=== PATIENT | male | born 1970 | race Caucasian/White ===

== ENCOUNTER 2024-04-14 11:03 | Day surgery (SDC) | payer BC, MEDICARE ==
[2024-04-14 11:42] VITALS: TEMP 97.3
[2024-04-14] MEDS: Lactated Ringers 1,000 ML IV SCH (11:45)
[2024-04-14] MEDS ORDERED: Lactated Ringers 1,000 ML IV ONE (11:46)
[2024-04-14] MEDS ORDERED: Versed 2 MG/2 ML Injection ONE (13:29)
[2024-04-14] MEDS ORDERED: DIPRIVAN 200 MG/20 ML IV ONE ×3 (13:29→13:52)
[2024-04-14 14:31] VITALS: RESP 16
[2024-04-14 14:44] VITALS: BP 122/79; PULSE 67; O2SAT 99
--- NOTE | 2024-04-15 08:46 | OP ---
SURGERY DATE/TIME: 04/14/2024 1329 PREOPERATIVE DIAGNOSES: 1) History of Reyes's esophagus. 2) History of colon polyps. POSTOPERATIVE DIAGNOSES: 1) Gastritis. 2) Reyes's esophagus. 3) Hiatal hernia. 4) Extensive pancolonic diverticulosis. PROCEDURES: 1) EGD. 2) Colonoscopy. SURGEON: Larry Fox M.D. ANESTHESIA: IV anesthesia. CONDITION: Patient condition stable. COMPLICATIONS: None. SPECIMEN: Antral biopsy, distal esophagus biopsy HISTORY: This is a 53-year-old male who a few years ago diagnosed with Reyes's esophagus and is having lots of heartburn symptoms but symptoms well managed on Protonix 40 mg daily and presents for surveillance of that. Also, with history of colon polyps. FINDINGS: A 2 cm hiatal hernia that there is no clear Z-line from 35 to 37 cm appears to have Reyes esophagus. Biopsy in quadrants associated with hiatal hernia. Mild gastritis with erythema. Colonoscopy with extensive pancolonic diverticulosis otherwise normal. DESCRIPTION OF PROCEDURE: The patient is brought to the endoscopy suite. Routinely positioned and prepared. Timeout performed. Gastroscope inserted through the mouth advanced to the third portion of the duodenum. The duodenum is normal in appearance. The stomach just with some mild erythematous gastritis. Biopsies of antrum taken for Helicobacter pylori. Retroflexion and gastroesophageal junction evaluated. There is a moderate hiatal hernia a few centimeters depth. He does appear to have Reyes's esophagus 35 cm where the normal esophageal mucosa is. The Z-line as not visible but appears from probably 35 to 37 cm. There is Reyes's esophagus that is biopsied in quadrants and the hiatal hernia distal to that. The stomach is then suctioned out. The scope is carefully withdrawn. Digital rectal examination is normal. Colonoscope is inserted and advanced to the terminal ileum. Terminal ileum is normal. The bowel preparation was Aronchick good preparation. On withdrawal, there is extensive pancolonic diverticulosis all the way from the cecum to the rectum and other than that the colonoscopy is normal greater than six minute withdrawal time performed. Retroflexion normal. The scope is withdrawn. The patient tolerated the procedure well and taken to recovery in stable condition. RECOMMENDATIONS: Continue on his daily proton pump inhibitor, follow up in office within one month to discuss pathology results. Question would be to medical management versus some kind of reflux procedure but it could be just changes from previous reflux symptomatically well managed now and grossly well managed now but will wait on the pathology results.
== END 2024-04-14 15:13 | disposition home or self-care (01) ==
LOC: SDC 11:03
PROVIDERS: ATTEND Surgery
DX: Z09 Encounter for follow-up examination after completed treatment for conditions other than malignant neoplasm (principal); Z86.010 Personal history of colon polyps; Z87.19 Personal history of other diseases of the digestive system; K29.70 Gastritis, unspecified, without bleeding; K22.70 Barrett's esophagus without dysplasia; K44.9 Diaphragmatic hernia without obstruction or gangrene; K57.30 Diverticulosis of large intestine without perforation or abscess without bleeding
CPT/HCPCS: 93005; J2250; J2704